=== PATIENT | female | born 1945 | race Caucasian/White ===

== ENCOUNTER → 2020-01-26 | Outpatient (CLI) | payer OTHER | END | disposition home or self-care (01) | LOC: RAH 13:24 | PROVIDERS: ATTEND Internal Medicine Cardiovascular Disease | DX: Z13.6 Encounter for screening for cardiovascular disorders (principal) | CPT/HCPCS: 75571 ==

== ENCOUNTER 2020-07-06 12:00 | Inpatient (IN) | payer OTHER ==
[~2020-07-06] VITALS: Ht 167.6 cm; Wt 80.3 kg
[2020-07-06 10:34] LABS: BASOPHILS % (AUTO) 0.6 % (0.0-5.0); EOSINOPHILS % (AUTO) 3.4 % (0.0-8.0); HEMATOCRIT 41.3 % (36-48); LYMPHOCYTES % (AUTO) 23.8 % (21.0-51.0); MEAN CORPUSCULAR HEMOGLOBIN 31.6 pg (27.0-33.0); MEAN CORPUSCULAR HGB CONC 32.2 g/dL (32.0-36.0); MEAN CORPUSCULAR VOLUME 98.1 fL (79-99); MONOCYTES % (AUTO) 9.3 % (3.0-13.0); NEUTROPHILS % (AUTO) 62.7 % (40.0-77.0); PLATELET COUNT (AUTO) 263 K/uL (130-400); RED BLOOD CELL COUNT(AUTO) 4.21 MIL/uL (4.00-5.50); RED CELL DISTRIBUTION WIDTH 12.3 % (11.0-15.5); WHITE BLOOD COUNT (AUTO) 6.2 K/uL (4.8-10.8)
[2020-07-06 10:52] LABS: INR 1.02 (0.85-1.15); PROTHROMBIN TIME 11.1 SEC (9.6-11.6)
[2020-07-06 10:54] LABS: APPEARANCE,URINE Clear (CLEAR); BILIRUBIN,URINE Negative (NEGATIVE); COLOR,URINE Yellow (YELLOW); GLUCOSE, URINE (UA) Negative (NEGATIVE); KETONES,URINE Negative (NEGATIVE); LEUKOCYTE ESTERASE ,URINE Large (NEGATIVE); NITRATE,URINE Negative (NEGATIVE); OCCULT BLOOD,URINE Negative (NEGATIVE); PROTEIN,URINE Negative (NEGATIVE); UROBILINOGEN,URINE 0.2 mg/dL (0.2-1.0)
[2020-07-06 11:04] LABS: CREATININE 0.7 mg/dL (0.5-1.5); POTASSIUM 4.7 mmol/L (3.5-5.1)
[2020-07-06 11:06] LABS: BACTERIA,URINE Few /HPF (None Seen); RBC,URINE None Seen /HPF (0-1); RENAL EPITHELIAL CELLS,URINE Few /HPF (None Seen); TRANSITIONAL EPI CELLS,URINE Moderate /HPF (None Seen)
[2020-07-10 12:22] VITALS: BP 112/70
[2020-07-10] MEDS ORDERED: LEVO100C4 PO (12:40)
[2020-07-11] VITALS (20 sets, daily range): BP systolic 101–151; BP diastolic 56–92
[2020-07-11] MEDS ORDERED: GENTAMICIN SULFATE 240 MG in 0.9%NACL 100ML 100 ML IV SCH (06:00)
[2020-07-11] MEDS ORDERED: GENTAMICIN 80 MG/NS 100 ML PB 0 ML IV ONE (09:14)
[2020-07-11] MEDS ORDERED: LACTATED RINGERS 1000ML 1,000 ML IV ONE (09:14)
[2020-07-11] MEDS: CEFAZOLIN SODIUM 1 GM VIAL IVP SCH ×3 (09:49→22:45)
[2020-07-11] MEDS ORDERED: ACETAMINOPHEN 500 MG TABLET ONE (12:35)
[2020-07-11] MEDS ORDERED: KETOROLAC 15MG/ML VIAL (15MG/ML) ONE (12:36)
[2020-07-11] MEDS ORDERED: TRANEXAMIC ACID 1000MG/10ML ONE ×2 (12:36→18:14)
[2020-07-11] MEDS ORDERED: CELECOXIB 200 MG CAP ONE (12:36)
[2020-07-11] MEDS ORDERED: CEFAZOLIN SODIUM 1 GM VIAL ONE ×2 (12:42→21:28)
[2020-07-11] MEDS ORDERED: HYDROMORPHONE 1 MG INJ ONE (12:48)
[2020-07-11] MEDS ORDERED: ROPIVACAINE 0.5% 5MG/ML 30ML IJ ONE (12:50)
[2020-07-11] MEDS ORDERED: LIDOCAINE PF 100MG/5ML (2%) SYRINGE 5ML ONE (12:57)
[2020-07-11] MEDS ORDERED: SUCCINYLCHOLINE CHLORIDE 20 MG/ML 10 ML VIAL ONE (12:57)
[2020-07-11] MEDS ORDERED: DEXAMETHASONE SOD PHOSPHATE 10MG/ML 1ML VIAL ONE ×2 (12:59→14:00)
[2020-07-11] MEDS ORDERED: ONDANSETRON 4MG INJ ONE (12:59)
[2020-07-11] MEDS ORDERED: NEOSTIGMINE 5MG/5ML SYR IV ONE (12:59)
[2020-07-11] MEDS ORDERED: GLYCOPYRROLATE 1 MG/5 ML SYRINGE ONE (12:59)
[2020-07-11] MEDS ORDERED: PROPOFOL 10 MG/ML 20ML VIAL IV ONE (12:59)
[2020-07-11] MEDS ORDERED: MIDAZOLAM HCL 1 MG/ML 2ML VIAL ONE (13:02)
[2020-07-11] MEDS ORDERED: ROCURONIUM 10MG/1ML SYR 10 MG/ML ML ONE (13:02)
[2020-07-11] MEDS ORDERED: FENTANYL CITRATE PF 50 MCG/1 ML 5ML AMP IV ONE (13:03)
[2020-07-11] MEDS ORDERED: EPHEDRINE SULFATE 50 MG/ML AMPULE ONE (13:59)
[2020-07-11] MEDS ORDERED: CEFAZOLIN SODIUM 1 GM VIAL IRRIG ONE (15:35)
[2020-07-11] MEDS ORDERED: TRAMADOL HCL 50 MG TABLET PO PRN (17:45)
[2020-07-11] MEDS ORDERED: DiphenhydrAMINE HCL 50 MG/ML VIAL IVP PRN (17:45)
[2020-07-11] MEDS ORDERED: FERROUS FUMARATE 324 MG TABLET PO PRN (17:45)
[2020-07-11] MEDS ORDERED: POTASSIUM CHLORIDE 10% ELIXIR 20 MEQ/15 ML UDCUP PO PRN (17:45)
[2020-07-11] MEDS ORDERED: OXYCODONE HCL 5 MG TAB PO PRN ×2 (17:45)
[2020-07-11] MEDS ORDERED: LIDOCAINE HCL-MPF 1% 2ML VIAL IV PRN (17:45)
[2020-07-11] MEDS ORDERED: KCL 20 MEQ ERTAB PO PRN (17:45)
[2020-07-11] MEDS ORDERED: POTASSIUM CHLORIDE 20MEQ/100ML 100 ML IV PRN (17:45)
[2020-07-11] MEDS: 0.9%NACL 1000ML 1,000 ML IV SCH (17:45)
[2020-07-11] MEDS ORDERED: ONDANSETRON 4MG INJ IVP PRN (17:45)
[2020-07-11] MEDS ORDERED: CALCIUM CARB 500MG PO PRN (17:45)
[2020-07-11] MEDS ORDERED: MORPHINE 2 MG SYG ONE (18:22)
[2020-07-11] MEDS: PREGABALIN 25 MG CAP PO SCH (21:00)
[2020-07-11] MEDS: CELECOXIB 200 MG CAP PO SCH (21:00)
[2020-07-11] MEDS: FAMOTIDINE 20MG TAB PO SCH (21:00)
[2020-07-12] VITALS (7 sets, daily range): BP systolic 90–106; BP diastolic 54–67
[2020-07-12] MEDS: ACETAMINOPHEN 500 MG TABLET PO SCH ×3 (01:45→17:35)
[2020-07-12] MEDS: CEFAZOLIN SODIUM 1 GM VIAL IVP SCH (05:43)
[2020-07-12 06:08] LABS: HEMATOCRIT 31.6 % (36-48); MEAN CORPUSCULAR HEMOGLOBIN 32.4 pg (27.0-33.0); MEAN CORPUSCULAR HGB CONC 33.5 g/dL (32.0-36.0); MEAN CORPUSCULAR VOLUME 96.6 fL (79-99); RED BLOOD CELL COUNT(AUTO) 3.27 MIL/uL (4.00-5.50); RED CELL DISTRIBUTION WIDTH 12.5 % (11.0-15.5); WHITE BLOOD COUNT (AUTO) 11.1 K/uL (4.8-10.8)
[2020-07-12 06:17] LABS: CREATININE 0.8 mg/dL (0.5-1.5); POTASSIUM 4.9 mmol/L (3.5-5.1)
[2020-07-12] MEDS: PREGABALIN 25 MG CAP PO SCH (09:00)
[2020-07-12] MEDS ORDERED: ASPIRIN 81 MG EC TAB ONE (10:15)
[2020-07-12] MEDS ORDERED: 0.9% NACL 500ML IV.SOLN 500 ML IV SCH (10:15)
[2020-07-12] MEDS: ASPIRIN 81MG CHEW TAB PO SCH ×2 (10:15→20:29)
[2020-07-12] MEDS: CELECOXIB 200 MG CAP PO SCH ×2 (10:19→20:30)
[2020-07-12] MEDS: FAMOTIDINE 20MG TAB PO SCH ×2 (10:20→20:30)
[2020-07-12] MEDS: POLYETHYLENE GLYCOL 3350 17 GM POWD.PACK PO SCH (10:21)
[2020-07-12] MEDS: LEVOTHYROXINE 100 MCG TABLET PO SCH (10:26)
[2020-07-12] MEDS: 0.9%NACL 1000ML 1,000 ML IV SCH (10:58)
[2020-07-12] MEDS: KETOROLAC 15MG/ML VIAL (15MG/ML) IV PRN (21:37)
[2020-07-13] MEDS: ACETAMINOPHEN 500 MG TABLET PO SCH ×2 (01:52→10:24)
[2020-07-13 04:45] VITALS: BP 101/54
[2020-07-13] MEDS: LEVOTHYROXINE 100 MCG TABLET PO SCH (06:15)
[2020-07-13] MEDS: CELECOXIB 200 MG CAP PO SCH (08:25)
[2020-07-13] MEDS: POLYETHYLENE GLYCOL 3350 17 GM POWD.PACK PO SCH (08:25)
[2020-07-13] MEDS: FAMOTIDINE 20MG TAB PO SCH (08:25)
[2020-07-13] MEDS: ASPIRIN 81MG CHEW TAB PO SCH (08:25)
[2020-07-13] MEDS: KETOROLAC 15MG/ML VIAL (15MG/ML) IV PRN (08:26)
[2020-07-13 09:01] VITALS: BP 119/65
[2020-07-13 13:58] VITALS: BP 96/55
[2020-07-13] MEDS ORDERED: ACET-2743 PO (18:03)
[2020-07-13] MEDS ORDERED: ASPI-1005 PO (18:03)
[2020-07-14] MEDS ORDERED: BISACODYL 10 MG SUPP.RECT RC PRN (17:45)
== END 2020-07-13 19:20 | disposition home health service (06) | DRG 470 ==
LOC: EDSTATUS 12:00 → DAHIP 07-11 08:54 → 4BH 07-11 20:10 → 4AH 07-12 01:23
PROVIDERS: ADMIT Orthopaedic Surgery; ATTEND Orthopaedic Surgery
PROC: 0SRB01Z Replacement of Left Hip Joint with Metal Synthetic Substitute, Open Approach (ICD-10-PCS; principal; 2020-07-11 13:47)
DX: M16.12 Unilateral primary osteoarthritis, left hip (principal); D64.9 Anemia, unspecified; E03.9 Hypothyroidism, unspecified; Z85.820 Personal history of malignant melanoma of skin; Z98.1 Arthrodesis status; Z87.891 Personal history of nicotine dependence; Z88.8 Allergy status to other drugs, medicaments and biological substances; Z20.822 Contact with and (suspected) exposure to COVID-19
CPT/HCPCS: 36415; 73503; 80048; 81001; 85025; 85027; 85610; 86850; 86900; 86901; 87088; 87641; 88305; 88311; 93005; 97039; C1776; G0378; J0330; J0690; J1100; J1170; J1580; J1885; J2001; J2250; J2405; J2704; J2710; J2795; J3010; J3490; J7120; U0003